=== PATIENT | female | born 1985 | race Caucasian/White ===

== ENCOUNTER 2017-08-29 12:43 | Emergency (ER) | payer BC, OTHER ==
[~2017-08-29] VITALS: Ht 162.6 cm; Wt 68.0 kg
[~2017-08-29 12:43] MED LIST: DOXY100T PO; LORT5TAB PO; Z.0.NO CURRENT MEDS
[2017-08-29 13:06] VITALS: BP 130/77; PULSE 88; RESP 18; TEMP 98.1; O2SAT 100
--- NOTE | 2017-08-29 13:49 | RADRPT ---
EXAM DATE/TIME: 08/29/2017 13:32 [place] COMPARISON: No previous studies available for comparison. INDICATIONS : Pain from fall. MEDICAL HISTORY : None. SURGICAL HISTORY : None. ENCOUNTER: Initial ACUITY: 1 day PAIN SCORE: 10/10 LOCATION: Right wrist. FINDINGS: Oblique fracture distal radius below the radiocarpal joint. Anatomic alignment. Ulna intact. CONCLUSION: Nondisplaced transverse fracture distal radius. Micheal Tidwell MD FACR on August 29, 2017 at 13:46 Board Certified Radiologist. This report was verified electronically.
[2017-08-29] MEDS ORDERED: KETOROLAC TROMETHAMINE 60 MG/2 ML (IM) VIAL IM ONE (16:15)
--- NOTE | 2017-08-29 16:17 | PD ---
HPI Chief Complaint: Injury Time Seen by Provider: 15:52 Travel History International Travel<30 days: No Contact w/Intl Traveler<30days: No Traveled to known affect area: No History of Present Illness HPI 32-year-old female presents emergency department status post fall from horse. She is here visiting her mother from [place]. She was riding her own horse when she was thrown forward and she went through a fence. Patient was wearing a helmet at the time. Patient did have a contusion to the nose with mild epistaxis at the time of the fall. She states this is improved. Her chief complaint is of right wrist and forearm pain. She denies neck pain , headache, loss of consciousness, chest pain, shoulder pain, abdominal pain, pelvic pain, or lower extremity pain. Patient is ambulatory. She was placed in a splint and given an ice pack in triage. X-rays of the wrist were ordered. Pain in the right arm is 6 out of 10 and worse with any movement or palpation. She denies numbness or tingling. She is able to move the fingers without difficulty. Patient is allergic to sulfa. PFSH Past Medical History Diminished Hearing: No Genitourinary: Yes (BLADDER INFECTION) Headaches: Yes ?: Unknown LMP: JUL 2017 : 0 Para: 0 Miscarriage: 0 Social History Alcohol Use: No Tobacco Use: No Substance Use: No Allergies-Medications (Allergen,Severity, Reaction): Coded Allergies: Sulfa (Sulfonamide Antibiotics) (Verified Allergy, Mild, HIVES, 08/29/17) Reported Meds & Prescriptions Reported Meds & Active Scripts Active Tramadol (Tramadol HCl) 50 Mg Tab 50 Mg PO Q6H PRN Review of Systems Except as stated in HPI: all other systems reviewed are Neg General / Constitutional: No: Fever Eyes: No: Visual changes HENT: No: Headaches Cardiovascular: No: Chest Pain or Discomfort Respiratory: No: Shortness of Breath Gastrointestinal: No: Abdominal Pain Genitourinary: No: Dysuria Musculoskeletal: Positive: Arthralgias, Limited ROM, Pain Skin: No Rash Neurologic: No: Weakness Psychiatric: No: Depression Endocrine: No: Polydipsia Hematologic/Lymphatic: No: Easy Bruising Physical Exam Narrative GENERAL: Patient appears in no obvious distress. SKIN: Warm and dry. Normal color. Normal turgor. Patient has superficial abrasions to the right dorsal proximal forearm. Patient has no abrasions to the face or other parts of the body. HEAD: Atraumatic. Normocephalic. Patient has tenderness over the bridge of the nose without obvious signs of trauma. EYES: Pupils equal and round. No scleral icterus. No injection or drainage. ENT: No nasal bleeding or discharge. Mucous membranes pink and moist. TMs are clear bilaterally. There is no dental injury. There is no injury to the buccal membrane or tongue. The turbinates are somewhat swollen and erythematous without active bleeding noted. There is no deviated septum noted. NECK: Trachea midline. No bony tenderness or step-off. Range of motion is full and nontender. Cervical spine is cleared utilizing Nexus criteria. CARDIOVASCULAR: Regular rate and rhythm. No murmurs gallops or rubs per RESPIRATORY: No accessory muscle use. Clear to auscultation. Breath sounds equal bilaterally. No thoracic wall pain or bony injury noted GASTROINTESTINAL: Abdomen soft, non-tender, nondistended. Hepatic and splenic margins not palpable. MUSCULOSKELETAL: Extremities without clubbing, cyanosis, or edema. No obvious deformities. Patient has pain with palpation over the right distal radius and middle forearm. She is able to extend the elbow fully with no pain with palpation to the medial or lateral epicondyles. There is no pain with palpation of the olecranon. Patient is able to make a fist with discomfort in the wrist. No significant swelling is noted at this time. Neurovascular exam is normal distally. The rest of the extremities are normal. NEUROLOGICAL: Awake and alert. No obvious cranial nerve deficits. Motor grossly within normal limits. Five out of 5 muscle strength in the arms and legs. Normal speech. PSYCHIATRIC: Appropriate mood and affect; insight and judgment normal. Data Data Last Documented VS Vital Signs Date Time Temp Pulse Resp B/P (MAP) Pulse Ox O2 Delivery O2 Flow Rate FiO2 08/29/17 13:06 98.1 88 18 130/77 (94) 100 Orders Orders Wrist, Complete ([id number]) (08/29/17 ) Splinting (08/29/17 ) Ketorolac Inj (Toradol Inj) (08/29/17 16:15) Ed Discharge Order (08/29/17 16:34) [facility] Medical Decision Making Medical Screen Exam Complete: Yes Emergency Medical Condition: Yes Differential Diagnosis Fall from horse. Nasal contusion. Right arm contusion. Possible fracture. Narrative Course Patient is medically stable at time of exam per Cervical spine is cleared utilizing Nexus criteria. Radiographic imaging of the head and neck is not felt warranted based on my history and physical. X-rays of the right wrist are ordered in triage showing nondisplaced transverse fracture of the distal radius. Patient is given Toradol 60 mg IM. Patient is placed in a sugar tong splint to the right arm. Patient is to wear splint at all times until seen by orthopedist. Patient is given copies of her x-rays to take with her. Patient will be given tramadol 50 mg 1 every 6 hours as needed pain #20. Patient is to use ice to the injured areas frequently as discussed. Patient can return to emergency department with worsening symptoms as needed. Diagnosis Primary Impression: Animal-rider injured by fall from or being thrown from horse in noncollision accident, initial encounter Additional Impression: Fracture of right distal radius Qualified Codes: S52.591A - Other fractures of lower end of right radius, initial encounter for closed fracture Referrals: Robby Reid MD call for appointment Patient Instructions: General Instructions, How to Use a Sling (GEN), Splint Care (ED) Additional Instructions: Radiographic imaging of the head and neck is not felt warranted based on my history and physical. X-rays of the right wrist are ordered in triage showing nondisplaced transverse fracture of the distal radius. Patient is given Toradol 60 mg IM. Patient is placed in a sugar tong splint to the right arm. Patient is to wear splint at all times until seen by orthopedist. Patient is given copies of her x-rays to take with her. Patient will be given tramadol 50 mg 1 every 6 hours as needed pain #20. Patient is to use ice to the injured areas frequently as discussed. Patient can return to emergency department with worsening symptoms as needed. Med/Other Pt SpecificInfo: Prescription(s) given Scripts Tramadol (Tramadol) 50 Mg Tab 50 MG PO Q6H Y for PAIN, #20 TAB 0 Refills Prov: Migue Josue MD 08/29/17 Disposition: 01 DISCHARGE HOME Condition: Stable Duc Ritchie Aug 29, 2017 16:17
[2017-08-29] MEDS ORDERED: TRAM50TA PO (16:33)
== END 2017-08-29 17:01 | disposition home or self-care (01) ==
LOC: NEPD 12:43
DX: S52.591A Other fractures of lower end of right radius, initial encounter for closed fracture (principal); S00.33XA Contusion of nose, initial encounter; R04.0 Epistaxis; V80.010A Animal-rider injured by fall from or being thrown from horse in noncollision accident, initial encounter; Y93.52 Activity, horseback riding
CPT/HCPCS: 29125; 73110; 96372; 99283; J1885